=== PATIENT | female | born 1950 | race African-American/Black ===

== ENCOUNTER 2021-03-20 15:01 | Inpatient (IN) | payer MEDICARE, OTHER ==
[~2021-03-20] VITALS: Ht 152.4 cm; Wt 40.0 kg
--- NOTE | 2021-03-20 15:44 | REP ---
INDICATION: fall, injury, pain COMPARISON: None. TECHNIQUE: AP and frog-lateral views of the right hip hip FINDINGS: Generalized age-related changes are appreciated. No evidence for acute or healed injury. Surrounding soft tissues are normal. IMPRESSION: Mild generalized age-related changes. No acute fracture or dislocation appreciated. <Electronically signed by Dustin Allen > 03/20/21 [id number]
[2021-03-20] MEDS ORDERED: NORCO, ANEXSIA 5/325MG TABLET (HYDROcodone/ACETAMINOPHEN) PO ONE (23:15)
--- NOTE | 2021-03-21 01:06 | REPVR ---
PROCEDURE INFORMATION: Exam: XR Right Femur Exam date and time: 03/20/2021 11:58 PM Age: 70 years old Clinical indication: Other: Fell, unable to bear weight TECHNIQUE: Imaging protocol: XR Right femur. Views: 2 views. COMPARISON: CR Hip, Ap,Lat 03/20/2021 3:24 PM FINDINGS: Bones/joints: Proximal right femur is intact. Right hip joint is intact. Deformities of the left superior and inferior pubic rami. Soft tissues: Unremarkable. Vasculature: Moderate vascular calcifications. Other findings: Copious stool overlying the sacrum. IMPRESSION: 1. No right hip fracture. 2. Deformities of the left superior and inferior pubic rami. Consistent with acute fractures. Recommend XR of the pelvis and left hip. Electronically signed by: Leidy Butler On 03/21/2021 01:05:36 AM
--- NOTE | 2021-03-21 01:07 | REPVR ---
PROCEDURE INFORMATION: Exam: XR Right Tibia and Fibula Exam date and time: 03/20/2021 11:58 PM Age: 70 years old Clinical indication: Other: Fell, unable to bear weight TECHNIQUE: Imaging protocol: XR Right tibia and fibula. Views: 2 views. COMPARISON: No relevant prior studies available. FINDINGS: Bones/joints: No acute fracture. No dislocation. Soft tissues: Normal. Vasculature: Moderate vascular calcification. IMPRESSION: No acute fracture. Electronically signed by: Leidy Butler On 03/21/2021 01:06:38 AM
--- NOTE | 2021-03-21 01:08 | REPVR ---
PROCEDURE INFORMATION: Exam: XR Spine; Lumbar Exam date and time: 03/20/2021 11:58 PM Age: 70 years old Clinical indication: Other: Fell, unahle to bear weight; Additional info: Fell, unable to bear weight TECHNIQUE: Imaging protocol: XR of the spine. Exam focused on the lumbar spine. Views: 1 view. COMPARISON: CR Hip, Ap,Lat 03/20/2021 3:24 PM FINDINGS: Limitations: Limited by single projection. Bones/joints: No gross fracture of the lumbar spine. Vertebral body heights are preserved on the AP projection. Deformity of the left pubic body and left superior pubic ramus. Copious stool overlying the sacrum. Vasculature: Moderate vascular calcification. Soft tissues: Normal. IMPRESSION: 1. Suboptimal evaluation of the lumbar spine. 2. Deformity of the left pubic body and left superior pubic ramus. Consistent with acute fractures. Electronically signed by: Leidy Butler On 03/21/2021 01:08:17 AM
--- NOTE | 2021-03-21 01:11 | REPVR ---
PROCEDURE INFORMATION: Exam: XR Pelvis Exam date and time: 03/20/2021 11:58 PM Age: 70 years old Clinical indication: Fell, unable to bear weight; Fell, cant bear weight TECHNIQUE: Imaging protocol: XR pelvis. Views: 3 or more views. COMPARISON: CR Spine, Lumbosacral, partial 03/20/2021 11:19 PM FINDINGS: Limitations: Examination is limited somewhat by the portable technique. Bones/joints: Deformities of the left pubic body and left superior pubic ramus. Consistent with acute fractures. Proximal femur are intact. No dislocation. Soft tissues: Unremarkable. Vasculature: Vascular calcifications. Other findings: Copious stool overlying the sacrum and pubic bone. IMPRESSION: Acute moderately displaced fractures of the left pubic body and left superior pubic ramus. Electronically signed by: Leidy Butler On 03/21/2021 01:10:34 AM
--- NOTE | 2021-03-21 02:04 | REPVR ---
PROCEDURE INFORMATION: Exam: CT Pelvis Without Contrast; Skeletal Exam date and time: 03/21/2021 1:41 AM Age: 70 years old Clinical indication: Acute fractures on XR. 3d recon for ramus fracture TECHNIQUE: Imaging protocol: Computed tomography images of the pelvis without contrast. Exam focused on the skeletal structures. Radiation optimization: All CT scans at this facility use at least one of these dose optimization techniques: automated exposure control; mA and/or kV adjustment per patient size (includes targeted exams where dose is matched to clinical indication); or iterative reconstruction. COMPARISON: CR Pelvis, complete 03/20/2021 11:47 PM FINDINGS: Limitations: Pelvic organs are not fully evaluated on this study. Bladder: Bladder is distended. Reproductive: Uterus is normal. Intraperitoneal space: No free fluid in the pelvis. Vasculature: Moderate calcified atherosclerotic disease. Bones/joints: Acute moderate displaced fracture of the right sacral wing. Acute nondisplaced displaced fracture of the anterior right acetabular column. Acute mildly displaced fracture of the right inferior pubic ramus. Acute moderate displaced fracture of the left pubic body extending into the left superior pubic ramus. Proximal femur are intact. No dislocation. Soft tissues: Unremarkable. IMPRESSION: 1. Acute moderate displaced fracture of the right sacral wing. 2. Acute fractures of the right anterior acetabular column, and right inferior pubic ramus. 3. Acute fractures of the left pubic body and left superior pubic ramus. Electronically signed by: Leidy Butler On 03/21/2021 02:03:53 AM
[2021-03-21] MEDS ORDERED: MORPHINE 2 MG/ML 1ML VIAL (J2270) IV ONE (03:00)
[2021-03-21 03:04] LABS: BASO % 0.3 % (0.0-1.0); EOS # 0.1 10^3/uL (0.0-0.5); EOS % 0.8 % (0.0-3.0); HEMATOCRIT 40.2 % (36.0-47.0); HEMOGLOBIN 13.5 g/dl (12.0-15.5); LYMPH # 1.1 10^3/uL (1.5-5.0); LYMPH % 15.5 % (24.0-44.0); MEAN CORPUSCULAR HEMOGLOBIN 31.8 pg (27.0-33.0); MEAN CORPUSCULAR HGB CONC 33.6 g/dl (32.0-36.5); MEAN CORPUSCULAR VOLUME 94.8 fl (80.0-96.0); MONO # 0.4 10^3/uL (0.0-0.8); MONO % 4.9 % (2.0-8.0); NEUTROPHILS # 5.7 10^3/uL (1.5-8.5); NEUTROPHILS % 78.1 % (36.0-66.0); PLATELET COUNT, AUTOMATED 261 10^3/uL (150-450); RED BLOOD COUNT 4.24 10^6/uL (4.00-5.40); WHITE BLOOD COUNT 7.3 10^3/uL (4.0-10.0)
[2021-03-21 03:46] LABS: RSV AMPLIFICATION NEGATIVE (NEGATIVE)
[2021-03-21 05:49] LABS: PROTHROMBIN TIME 13.6 SECONDS (12.7-14.5)
[2021-03-21] MEDS ORDERED: oxyCODONE 5MG TAB PO PRN (07:40)
[2021-03-21] MEDS ORDERED: MOM 30ML SUSPENSION UDC PO PRN (07:40)
[2021-03-21] MEDS ORDERED: MAALOX 30 ML SUSP *UDC PO PRN (07:40)
[2021-03-21] MEDS ORDERED: VITMTA PO (08:13)
--- NOTE | 2021-03-21 08:13 | ECGEPIP ---
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
[2021-03-21] MEDS ORDERED: MUCI600T31 PO (08:38)
[2021-03-21] MEDS ORDERED: EXCETAB33 PO (08:38)
[2021-03-21 08:40] VITALS: BP 122/84
[2021-03-21] MEDS ORDERED: HOME MED LIST COMPLETE! XX SCH (08:40)
[2021-03-21] MEDS: PANTOPRAZOLE 40MG TAB (PROTONIX) PO SCH (10:08)
[2021-03-21] MEDS: DOCUSATE SODIUM 100MG CAPSULE PO SCH ×2 (10:08→20:55)
[2021-03-21] MEDS: ENOXAPARIN 40MG/0.4ML SYRINGE (J1650 PER 10MG) SC SCH (10:09)
[2021-03-21] MEDS: NAPROXEN 250 MG TAB PO SCH ×2 (10:10→20:55)
[2021-03-21] MEDS: traMADol 50 MG TAB PO SCH ×3 (10:10→21:00)
--- NOTE | 2021-03-21 10:20 | HPEPDOC ---
General Date of Admission 03/21/21 Date of Service: Mar 21, 2021 Chief Complaint The patient is a 70-year-old female admitted with a reason for visit of Fall Injury. History of Present Illness 70-year-old female with no past medical history presented to the emergency room after a mechanical fall at home early this morning. Patient got up suddenly from bed to go check on her grandson who is 1-1/2 years old as she saw her standing up and the baby monitor and had a mechanical fall. She was able to crawl to hold onto object and pull herself up and was able to go check on the baby but then continued to feel severe pain in her right hip and pelvis especially when she was trying to put weight on it so was brought to the emergency room. When she is at rest she is in no pain but as soon as she is trying to put bear weight she complains of 8/10 pain which is sharp aching located at the right hip and right pelvis with no radiation. In the ED she she had a pelvic CT which showed 1. Acute moderate displaced fracture of the right sacral wing. 2. Acute fractures of the right anterior acetabular column, and right inferior pubic ramus. 3. Acute fractures of the left pubic body and left superior pubic ramus. Orthopedic Dr. Guzman was consulted by ED physician and his recommendation was pain control, PT with weightbearing as tolerated no surgical intervention required. Home Medications Scheduled Multivitamins (Thera M Plus Tablet) 1 Each Tablet, 1 TAB PO QAM, (Reported) Scheduled PRN Aspirin/Acetaminophen/Caffeine (Excedrin Migraine Caplet) 1 Each Tablet, 2 TAB PO BID PRN for MIGRAINE, (Reported) Guaifenesin (Mucinex) 600 Mg Tab.er.12h, 600 MG PO BID PRN for COUGH, (Reported) Allergies Coded Allergies: No Known Drug Allergies (Verified Allergy, Unknown, 03/20/21) Past Medical History Medical History None Surgical History None Family History Significant Family History: Other (Mother had Parkinson's disease passed age 84) Social History * Smoker: current smoker Alcohol: Denies Drugs: denies A-FIB/CHADSVASC A-FIB History Current/History of A-Fib/PAF?: No Review of Systems Constitutional: Denies: Chills, Fever, Night Sweats Eyes: Denies: Pain, Vision change ENT: Denies: Head Aches, Ear Pain, Dysphagia Skin: Denies: Rash, Lesions, Breakdown Pulmonary: Denies: Dyspnea, Cough Cardiovascular: Denies: Chest Pain, Palpitations, Orthopnea, Paroxysmal Noc. Dyspnea, Lt Headedness Gastrointestinal: Denies: Nausea, Vomiting, Abdominal Pain, Diarrhea Genitourinary: Denies: Dysuria, Frequency, Incontinence, Retention Musculoskeletal: Reports: Joint Pain (Right hip pain) Neurological: Denies: Weakness, Numbness, Change in speech, Confusion Physical Examination General Exam: Positive: Alert, Cooperative, No Acute Distress Eye Exam: Positive: PERRLA, Conjunctiva & lids normal, EOMI; Negative: Sclera icteric ENT Exam: Positive: Atraumatic, Mucous membr. moist/pink, Pharynx Normal Neck Exam: Positive: Supple; Negative: JVD, thyromegaly Chest Exam: Positive: Clear to auscultation, Normal air movement Heart Exam: Positive: Rate Normal, Regular Rhythm, Normal S1, Normal S2; Negative: Murmurs, Rubs Abdomen Exam: Positive: Normal bowel sounds, Soft; Negative: Tenderness, Hepatospenomegaly Extremity Exam: Negative: Clubbing, Cyanosis, Edema Vital Signs Vital Signs Date Time Temp Pulse Resp B/P (MAP) Pulse Ox O2 Delivery O2 Flow Rate FiO2 03/21/21 04:33 140/65 (90) 03/21/21 04:32 16 03/21/21 00:23 98.0 79 97 Room Air Laboratory Data Labs 24H Laboratory Tests 2 03/21/21 02:52: Immature Granulocyte % (Auto) 0.4, Neutrophils (%) (Auto) 78.1H, Lymphocytes (%) (Auto) 15.5L, Monocytes (%) (Auto) 4.9, Eosinophils (%) (Auto) 0.8, Basophils (%) (Auto) 0.3, Neutrophils # (Auto) 5.7, Lymphocytes # (Auto) 1.1L, Monocytes # (Auto) 0.4, Eosinophils # (Auto) 0.1, Basophils # (Auto) 0.0, Nucleated Red Blood Cells % (auto) 0.0, Coronavirus (COVID-19)(PCR) NEGATIVE, Influenza Type A (RT-PCR) NEGATIVE, Influenza Type B (RT-PCR) NEGATIVE, Respiratory Syncytial Virus (PCR) NEGATIVE 03/21/21 05:01: Prothrombin Time 13.6, Prothromb Time International Ratio 1.00 03/21/21 07:25: POC Glucose (Misc Panel) 86, POC Sodium (Misc Panel) 137, POC Potassium (Misc Panel) 3.7, POC Chloride (Misc Panel) 101, POC Total CO2 (Misc Panel) 27.0, POC Blood Urea Nitrogen (Misc Panel 13, POC Ionized Calcium (Misc Panel) 5.0, POC Creatinine (Misc Panel) 0.6, POC Hematocrit (Misc Panel) 38.0 CBC/BMP Laboratory Tests 03/21/21 02:52 Assessment/Plan 70-year-old female from [place], visiting her son who is in the , with no past medical history presented to the emergency room after a mechanical fall at home early this morning. Patient got up suddenly from bed to go check on her grandson who is 1-1/2 years old as she saw her standing up and the baby monitor and had a mechanical fall. She was able to crawl to hold onto object and pull herself up and was able to go check on the baby but then continued to feel severe pain in her right hip and pelvis especially when she was trying to put weight on it so was brought to the emergency room. When she is at rest she is in no pain but as soon as she is trying to put bear weight she complains of 8/10 pain which is sharp aching located at the right hip and right pelvis with no radiation. She was found to have moderately displaced fracture of the right sacral wing, right anterior acetabular column fracture right inferior ramus fracture, left superior ramus fracture, left pubic body fracture. Pelvic fracture As above Orthopedic Dr. Guzman was consulted by ED physician and his recommendation was pain control, PT with weightbearing as tolerated no surgical intervention required. Pain control with naproxen and tramadol and Tylenol PT OT Weightbearing as tolerated Plan / VTE VTE Prophylaxis Ordered?: Yes Venus Vinson MD Mar 21, 2021 07:44
--- NOTE | 2021-03-21 13:23 | IPNPDOC ---
Text Note Date of Service The patient was seen on 03/21/21. NOTE ORTHO CONSULT NOTE Reason for Consult: s/p fall and pelvic pain History of Present Illness 70-year-old female with no past medical history presented to the emergency room after a mechanical fall at home early yesterday morning. Patient got up suddenly from bed to go check on her grandson who is 1-1/2 years old as she saw her standing up on the baby monitor and had a mechanical fall. She was able to crawl to hold onto object and pull herself up and was able to go check on the baby but then continued to feel severe pain in her right hip and pelvis especially when she was trying to put weight on it so was brought to the emergency room. When she is at rest she is in no pain but as soon as she is trying to put bear weight she complains of 8/10 pain which is sharp aching located at the right hip and right pelvis with no radiation. In ED she had imaging that demonstrated fractures of the right sacral ala and both superior and inferior pubic rami, in addition to the left superior pubic ramus Orthopaedics was called for further evaluation and management. Home Medications Scheduled Multivitamins (Thera M Plus Tablet) 1 Each Tablet, 1 TAB PO QAM, (Reported) Scheduled PRN Aspirin/Acetaminophen/Caffeine (Excedrin Migraine Caplet) 1 Each Tablet, 2 TAB PO BID PRN for MIGRAINE, (Reported) Guaifenesin (Mucinex) 600 Mg Tab.er.12h, 600 MG PO BID PRN for COUGH, (Reported) Allergies Coded Allergies: No Known Drug Allergies (Verified Allergy, Unknown, 03/20/21) Past Medical History Medical History None Surgical History None Family History Significant Family History: Other (Mother had Parkinson's disease passed age 84) Social History * Smoker: current smoker Alcohol: Denies Drugs: denies Review of Systems Constitutional: Denies: Chills, Fever, Night Sweats Eyes: Denies: Pain, Vision change ENT: Denies: Head Aches, Ear Pain, Dysphagia Skin: Denies: Rash, Lesions, Breakdown Pulmonary: Denies: Dyspnea, Cough Cardiovascular: Denies: Chest Pain, Palpitations, Orthopnea, Paroxysmal Noc. Dyspnea, Lt Headedness Gastrointestinal: Denies: Nausea, Vomiting, Abdominal Pain, Diarrhea Genitourinary: Denies: Dysuria, Frequency, Incontinence, Retention Musculoskeletal: Reports: Joint Pain (Right hip pain) Neurological: Denies: Weakness, Numbness, Change in speech, Confusion Physical Examination General Exam: Positive: Alert, Cooperative, No Acute Distress Neuro: A&O x4 Psych: normal mood and affect Eye Exam: Positive: PERRLA, Conjunctiva & lids normal, EOMI; Negative: Sclera icteric ENT Exam: Positive: Atraumatic, Mucous membr. moist/pink, Pharynx Normal Chest Exam: ECRF, NLB Heart Exam: Regular Rhythm Abdomen Exam: NT, ND Extremity Exam: Exam of the bilateral lower extremities and pelvis demonstrates TTP over the superior pubic rami, but nearly full AAROM of the hips and knees. No pain other than pelvis. Able to stand with me and then alone unassisted. Otherwise NVI distally. Imaging: Radiographs of the right lower extremity and pelvis, in addition to CT scan, were reviewed and demonstrate bilateral pubic rami fractures and a unicortical right sacral ala fracture, consistent with Lateral Compression Type 1 injury. Assessment/Plan 70-year-old female who sustained a ground level fall who now has an LC-1 pelvic ring injury. It appears grossly stable and likely will not require surgery. Recommendations: - Touch down weight bearing with PT and 1 or 2 assists, okay for ambulation with walker and assist. - After working with therapy, would like to get a standing AP pelvis XR tomorrow. This will demonstrate any potential shifts in the fractures. If none, then will continue treatment plan as stable LC-1. If fracture shift will need to consider transfer to higher level of care for further surgical intervention. - Pain control per primary team - DVT prophylaxis per primary team Please call Ortho with any questions, Sam ([phone]) Alis Perez VS,Gamalielbonwyatt, I+O VS, Gamalielbone, I+O Laboratory Tests 03/21/21 02:52 Vital Signs Date Time Temp Pulse Resp B/P (MAP) Pulse Ox O2 Delivery O2 Flow Rate FiO2 03/21/21 10:10 17 03/21/21 08:40 97.8 103 122/84 (97) 93 Room Air KRISSY PEREZ MD Mar 21, 2021 13:23
[2021-03-21 14:00] VITALS: BP 107/71
[2021-03-21] MEDS: ACETAMINOPHEN TAB 650MG DOSE (2X325MG) PO PRN ×2 (16:52→20:55)
[2021-03-21 22:00] VITALS: BP 111/67
[2021-03-22 06:00] VITALS: BP 128/72
[2021-03-22] MEDS: traMADol 50 MG TAB PO SCH ×3 (08:08→20:36)
[2021-03-22] MEDS: DOCUSATE SODIUM 100MG CAPSULE PO SCH ×2 (08:11→20:35)
[2021-03-22] MEDS: NAPROXEN 250 MG TAB PO SCH ×2 (08:11→20:36)
[2021-03-22] MEDS: PANTOPRAZOLE 40MG TAB (PROTONIX) PO SCH (08:11)
[2021-03-22] MEDS: ENOXAPARIN 40MG/0.4ML SYRINGE (J1650 PER 10MG) SC SCH (08:12)
[2021-03-22 08:37] LABS: ALBUMIN 2.9 GM/DL (3.2-5.2); BILIRUBIN,DIRECT 0.1 MG/DL (0.0-0.2); BILIRUBIN,TOTAL 0.4 MG/DL (0.2-1.0); TOTAL PROTEIN 5.6 GM/DL (6.4-8.2)
--- NOTE | 2021-03-22 09:37 | REP ---
INDICATION: Standing AP, inlet, outlet views please. COMPARISON: CT dated 03/21/2021 TECHNIQUE: AP, inlet, and outlet views of the pelvis FINDINGS: There is a known mildly displaced fracture through the right inferior pubic ramus and nondisplaced fracture along the left pubis involving the medial aspect of the superior pubic ramus. Fracture involving the right sacral wing and fracture involving the right acetabular column are not identifiable due to osteopenia, degenerative changes and overlying bowel gas. IMPRESSION: Fractures as described above are best identified and evaluated on recent pelvic CT. <Electronically signed by Dustin Allen > 03/22/21 0999
--- NOTE | 2021-03-22 09:45 | IPNPDOC ---
Subjective Date Seen The patient was seen on 03/22/21. Subjective Chief Complaint/HPI No pain while at rest. Could not do much with PT yesterday. Only waqas to stand by the side of the bed . Objective Physical Examination General Exam: Positive: Alert, Cooperative, No Acute Distress Eye Exam: Positive: PERRLA, Conjunctiva & lids normal, EOMI ENT Exam: Positive: Atraumatic, Mucous membr. moist/pink, Pharynx Normal, Other ENT (Bitemporal wasting. ) Neck Exam: Positive: Supple Chest Exam: Positive: Clear to auscultation, Normal air movement Heart Exam: Positive: Rate Normal, Regular Rhythm, Normal S1, Normal S2 Abdomen Exam: Positive: Normal bowel sounds, Soft Extremity Exam: Negative: Clubbing, Cyanosis, Edema Assessment /Plan Assessment 70-year-old female from [place], visiting her son who is in the , with no past medical history presented to the emergency room after a mechanical fall at home early this morning. Patient got up suddenly from bed to go check on her grandson who is 1-1/2 years old as she saw him standing up in the baby monitor and had a mechanical fall. She was able to crawl to hold onto object and pull herself up and was able to go check on the baby but then continued to feel severe pain in her right hip and pelvis especially when she was trying to put weight on it so was brought to the emergency room. When she is at rest she is in no pain but as soon as she is trying to put bear weight she complains of 8/10 pain which is sharp aching located at the right hip and right pelvis with no radiation. She was found to have moderately displaced fracture of the right sacral wing, right anterior acetabular column fracture right inferior ramus fracture, left superior ramus fracture, left pubic body fracture. Pelvic ring injury Orthopedic recommendations Touch down weight bearing with PT and 1 or 2 assists, okay for ambulation with walker and assist. Repeat pelvic Xray has been completed today. Await orthopedic review to determine if the fracture is stable or not. Pain control with naproxen and tramadol and Tylenol PT /OT Protein calorie malnutrition/Sarcopenia albumin 2.9 BMI of 17,2 with bitemporal wasting and wasting of small muscles of hand and feet. Plan/VTE VTE Prophylaxis Ordered?: Yes VS, I&O, 24H, Fishbone Vital Signs/I&O Vital Signs Date Time Temp Pulse Resp B/P (MAP) Pulse Ox O2 Delivery O2 Flow Rate FiO2 03/22/21 06:00 98.9 75 20 128/72 (90) 95 Room Air I&O- Last 24 Hours up to 6 AM 03/22/21 05:59 Intake Total 1260 ml Output Total 0 ml Balance 1260 ml Laboratory Data 24H LABS Laboratory Tests 2 03/21/21 07:25: POC Glucose (Misc Panel) 86, POC Sodium (Misc Panel) 137, POC Potassium (Misc Panel) 3.7, POC Chloride (Misc Panel) 101, POC Total CO2 (Misc Panel) 27.0, POC Blood Urea Nitrogen (Misc Panel 13, POC Ionized Calcium (Misc Panel) 5.0, POC Creatinine (Misc Panel) 0.6, POC Hematocrit (Misc Panel) 38.0 Venus Vinson MD Mar 22, 2021 07:03
--- NOTE | 2021-03-22 10:24 | IPNPDOC ---
Text Note Date of Service The patient was seen on 03/22/21. NOTE Ortho Progress Note S: patient doing well today, not much change in pain level. Was able to do standing pelvis XR. feels like she is getting stronger and able to move better. No other changes or complaints. O: resting comfortably in bed - Pelvis still TTP around pubic rami, ROM full but painful about hips, NVI distally Imaging: - Standing Pelvis XR and supine inlet/outlet views reviewed today. The standing film is basically identical to the pelvis film taken upon admission, indicating stable pelvic ring. A/P: 70 F with stable pelvic ring injury, LC-1. No surgery recommended at this point. - Okay to continue touch down weight bearing and progress to WBAT as continues to work with therapy. Likely will need assistance and walker for some time. - Pain control and DVT ppx per primary team. - Dispo: per PT/OT recs at this point (with regards to rehab vs. d/c home). If patient plans to stay in the area for a while, then she can follow up with me at [facility] ortho clinic on 23 APR 2021. If she plans on returning to [place] then I would recommend her seeing an orthopaedic surgeon sometime soon after arriving, within a couple of weeks. - If any changes or concerns, please do not hesitate to contact me. Alis Perez VS,Heather, I+O VS, Heather, I+O Vital Signs Date Time Temp Pulse Resp B/P (MAP) Pulse Ox O2 Delivery O2 Flow Rate FiO2 03/22/21 10:00 17 03/22/21 06:00 98.9 75 128/72 (90) 95 Room Air I&O- Last 24 Hours up to 6 AM 03/22/21 06:00 Intake Total 1260 ml Output Total 0 ml Balance 1260 ml KRISSY PEREZ MD Mar 22, 2021 10:24
[2021-03-22] MEDS: ACETAMINOPHEN TAB 650MG DOSE (2X325MG) PO PRN ×2 (10:52→20:35)
[2021-03-22 22:00] VITALS: BP 121/71
[2021-03-23 06:00] VITALS: BP 120/72
[2021-03-23 06:23] LABS: BASO % 0.3 % (0.0-1.0); EOS # 0.2 10^3/uL (0.0-0.5); EOS % 3.7 % (0.0-3.0); HEMATOCRIT 35.1 % (36.0-47.0); LYMPH # 1.6 10^3/uL (1.5-5.0); LYMPH % 25.8 % (24.0-44.0); MEAN CORPUSCULAR HEMOGLOBIN 31.9 pg (27.0-33.0); MEAN CORPUSCULAR HGB CONC 34.2 g/dl (32.0-36.5); MEAN CORPUSCULAR VOLUME 93.4 fl (80.0-96.0); MONO # 0.4 10^3/uL (0.0-0.8); MONO % 6.8 % (2.0-8.0); NEUTROPHILS # 3.9 10^3/uL (1.5-8.5); NEUTROPHILS % 62.9 % (36.0-66.0); PLATELET COUNT, AUTOMATED 237 10^3/uL (150-450); RED BLOOD COUNT 3.76 10^6/uL (4.00-5.40); WHITE BLOOD COUNT 6.2 10^3/uL (4.0-10.0)
[2021-03-23 06:44] LABS: BLOOD UREA NITROGEN 16 MG/DL (7-18); CALCIUM LEVEL 9.2 MG/DL (8.8-10.2); CARBON DIOXIDE LEVEL 28 MEQ/L (21-32); CHLORIDE LEVEL 108 MEQ/L (98-107); CREATININE FOR GFR 0.66 MG/DL (0.55-1.30); GLOMERULAR FILTRATION RATE > 60.0 (>39); GLUCOSE, FASTING 110 MG/DL (70-100); POTASSIUM SERUM 3.5 MEQ/L (3.5-5.1); SODIUM LEVEL 142 MEQ/L (136-145)
[2021-03-23] MEDS: DOCUSATE SODIUM 100MG CAPSULE PO SCH (08:33)
[2021-03-23] MEDS: PANTOPRAZOLE 40MG TAB (PROTONIX) PO SCH (08:33)
[2021-03-23] MEDS: NAPROXEN 250 MG TAB PO SCH (08:34)
[2021-03-23] MEDS: traMADol 50 MG TAB PO SCH ×2 (08:34→16:48)
[2021-03-23] MEDS: ENOXAPARIN 40MG/0.4ML SYRINGE (J1650 PER 10MG) SC SCH (08:35)
--- NOTE | 2021-03-23 11:23 | IPNPDOC ---
Subjective Date Seen The patient was seen on 03/23/21. Subjective Chief Complaint/HPI Feels well this am. has worked with PT. Eager to go home. Objective Physical Examination General Exam: Positive: Alert, Cooperative, No Acute Distress Eye Exam: Positive: PERRLA, Conjunctiva & lids normal, EOMI ENT Exam: Positive: Atraumatic, Mucous membr. moist/pink, Pharynx Normal, Other ENT (Bitemporal wasting. ) Neck Exam: Positive: Supple Chest Exam: Positive: Clear to auscultation, Normal air movement Heart Exam: Positive: Rate Normal, Regular Rhythm, Normal S1, Normal S2 Abdomen Exam: Positive: Normal bowel sounds, Soft Extremity Exam: Negative: Clubbing, Cyanosis, Edema Assessment /Plan Assessment 70-year-old female from [place], visiting her son who is in the , with no past medical history presented to the emergency room after a mechanical fall at home early this morning. Patient got up suddenly from bed to go check on her grandson who is 1-1/2 years old as she saw him standing up in the baby monitor and had a mechanical fall. She was able to crawl to hold onto object and pull herself up and was able to go check on the baby but then continued to feel severe pain in her right hip and pelvis especially when she was trying to put weight on it so was brought to the emergency room. When she is at rest she is in no pain but as soon as she is trying to put bear weight she complains of 8/10 pain which is sharp aching located at the right hip and right pelvis with no radiation. She was found to have moderately displaced fracture of the right sacral wing, right anterior acetabular column fracture right inferior ramus fracture, left superior ramus fracture, left pubic body fracture. Pelvic ring injury Orthopedic recommendations Touch down weight bearing with PT and 1 or 2 assists, okay for ambulation with walker and assist. Repeat pelvic Xray has been completed today. Await orthopedic review to determine if the fracture is stable or not. Pain control with naproxen and tramadol and Tylenol PT /OT Protein calorie malnutrition/Sarcopenia albumin 2.9 BMI of 17,2 with bitemporal wasting and wasting of small muscles of hand and feet. DME requirement: Wheelchair : Patient's mobility is limited due to pelvic ring fracture and she is unable to complete her ADLs independently in a reasonable time frame. Her mobility limitation cannot be resolved by a walker or cane. Use of a manual WC will improve the beneficiary's ability to participate in ADLs and patient will use it regularly at home. Patient 's son and daughter are available to provide assistance with the wheelchair. Plan/VTE VTE Prophylaxis Ordered?: Yes VS, I&O, 24H, Fishbone Vital Signs/I&O Vital Signs Date Time Temp Pulse Resp B/P (MAP) Pulse Ox O2 Delivery O2 Flow Rate FiO2 03/23/21 08:34 18 Room Air 03/23/21 06:00 97.8 85 120/72 (88) 94 I&O- Last 24 Hours up to 6 AM 03/23/21 06:00 Intake Total 840 ml Output Total 0 ml Balance 840 ml Laboratory Data 24H LABS Laboratory Tests 2 03/23/21 06:10: Immature Granulocyte % (Auto) 0.5, Neutrophils (%) (Auto) 62.9, Lymphocytes (%) (Auto) 25.8, Monocytes (%) (Auto) 6.8, Eosinophils (%) (Auto) 3.7H, Basophils (%) (Auto) 0.3, Neutrophils # (Auto) 3.9, Lymphocytes # (Auto) 1.6, Monocytes # (Auto) 0.4, Eosinophils # (Auto) 0.2, Basophils # (Auto) 0.0, Nucleated Red Blood Cells % (auto) 0.0, Anion Gap 6L, Glomerular Filtration Rate > 60.0, Calcium Level 9.2 CBC/BMP Laboratory Tests 03/23/21 06:10 Venus Vinson MD Mar 23, 2021 11:23
[2021-03-23 14:00] VITALS: BP 119/73
[2021-03-23] MEDS ORDERED: ASPI81TA26 PO (15:57)
[2021-03-23] MEDS ORDERED: TRAM50TA2 PO (15:57)
[2021-03-23] MEDS ORDERED: COLA100C5 PO (15:57)
[2021-03-23] MEDS ORDERED: OXYC-517 PO (15:57)
--- NOTE | 2021-03-23 16:36 | IPNPDOC ---
Text Note Date of Service The patient was seen on 03/23/21. NOTE Ortho Progress Note S: patient doing well today, pain more manageable. Was able to go to the restroom unassisted last night. No other changes or complaints. O: resting comfortably in bed - Pelvis still TTP around pubic rami, ROM full but painful about hips, NVI distally Imaging: - Standing Pelvis XR and supine inlet/outlet views reviewed previously. The standing film is basically identical to the pelvis film taken upon admission, indicating stable pelvic ring. A/P: 70 F with stable pelvic ring injury, LC-1. No surgery recommended at this point. - Okay to continue touch down weight bearing and progress to WBAT as continues to work with therapy. Likely will need assistance and walker for some time. - Pain control and DVT ppx per primary team. - Dispo: per PT/OT recs at this point (with regards to rehab vs. d/c home). If patient plans to stay in the area for a while, then she can follow up with me at [facility] ortho clinic on 23 APR 2021. If she plans on returning to [place] then I would recommend her seeing an orthopaedic surgeon sometime soon after arriving, within a couple of weeks. - If any changes or concerns, please do not hesitate to contact me. Alis Perez VS,Heather, I+O VS, Heather, I+O Laboratory Tests 03/23/21 06:10 Vital Signs Date Time Temp Pulse Resp B/P (MAP) Pulse Ox O2 Delivery O2 Flow Rate FiO2 03/23/21 14:00 98.3 80 18 119/73 (88) 96 Room Air I&O- Last 24 Hours up to 6 AM 03/23/21 06:00 Intake Total 840 ml Output Total 0 ml Balance 840 ml KRISSY PEREZ MD Mar 23, 2021 16:36
--- NOTE | 2021-03-23 21:59 | DS.PDOC ---
Discharge Summary General Date of Admission Mar 21, 2021 at 07:38 Date of Discharge 03/23/21 Discharge Summary PROCEDURES PERFORMED DURING STAY: [None]. DISCHARGE DIAGNOSES: Stable Pelvic ring fracture Sarcopenia Protein Calorie malnutrition COMPLICATIONS/CHIEF COMPLAINT: Pelvic Fracture. HOSPITAL COURSE: 70-year-old female from [place], visiting her son who is in the , with no past medical history presented to the emergency room after a mechanical fall at home early this morning. Patient got up suddenly from bed to go check on her grandson who is 1-1/2 years old as she saw him standing up in the baby monitor and had a mechanical fall. She was able to crawl to hold onto object and pull herself up and was able to go check on the baby but then continued to feel severe pain in her right hip and pelvis especially when she was trying to put weight on it so was brought to the emergency room. When she is at rest she is in no pain but as soon as she is trying to put bear weight she complains of 8/10 pain which is sharp aching located at the right hip and right pelvis with no radiation. She was found to have moderately displaced fracture of the right sacral wing, right anterior acetabular column fracture right inferior ramus fracture, left superior ramus fracture, left pubic body fracture. Stable Pelvic ring injury Orthopedic recommendations No need for surgical intervention. Touch down weight bearing with PT and 1 or 2 assists, okay for ambulation with walker and assist. Pain control with naproxen and tramadol and Tylenol Continue PT /OT Follow up with ortho in 2 weeks Either here or in [place]. Protein calorie malnutrition/Sarcopenia albumin 2.9 BMI of 17,2 with bitemporal wasting and wasting of small muscles of hand and feet. DISCHARGE MEDICATIONS: Please see below. ALLERGIES: Please see below. PHYSICAL EXAMINATION ON DISCHARGE: VITAL SIGNS: Please see below. General Exam: Positive: Alert, Cooperative, No Acute Distress Eye Exam: Positive: PERRLA, Conjunctiva & lids normal, EOMI ENT Exam: Positive: Atraumatic, Mucous membr. moist/pink, Pharynx Normal, Other ENT (Bitemporal wasting. ) Neck Exam: Positive: Supple Chest Exam: Positive: Clear to auscultation, Normal air movement Heart Exam: Positive: Rate Normal, Regular Rhythm, Normal S1, Normal S2 Abdomen Exam: Positive: Normal bowel sounds, Soft Extremity Exam: Negative: Clubbing, Cyanosis, Edema LABORATORY DATA: Please see below. IMAGING: Pelvic CT 03/21/21: FINDINGS: Limitations: Pelvic organs are not fully evaluated on this study. Bladder: Bladder is distended. Reproductive: Uterus is normal. Intraperitoneal space: No free fluid in the pelvis. Vasculature: Moderate calcified atherosclerotic disease. Bones/joints: Acute moderate displaced fracture of the right sacral wing. Acute nondisplaced displaced fracture of the anterior right acetabular column. Acute mildly displaced fracture of the right inferior pubic ramus. Acute moderate displaced fracture of the left pubic body extending into the left superior pubic ramus. Proximal femur are intact. No dislocation. Soft tissues: Unremarkable. IMPRESSION: 1. Acute moderate displaced fracture of the right sacral wing. 2. Acute fractures of the right anterior acetabular column, and right inferior pubic ramus. 3. Acute fractures of the left pubic body and left superior pubic ramus. Pelvic Xray 03/22/21: FINDINGS: There is a known mildly displaced fracture through the right inferior pubic ramus and nondisplaced fracture along the left pubis involving the medial aspect of the superior pubic ramus. Fracture involving the right sacral wing and fracture involving the right acetabular column are not identifiable due to osteopenia, degenerative changes and overlying bowel gas. IMPRESSION: Fractures as described above are best identified and evaluated on recent pelvic CT. ACTIVITY: [As tolerated]. DIET: Regular DISCHARGE PLAN: Home with services DISCHARGE INSTRUCTIONS: Follow up with orthopedics in 2 weeks DISCHARGE CONDITION: [Stable]. TIME SPENT ON DISCHARGE: 35 minutes. Vital Signs/I&Os Vital Signs Date Time Temp Pulse Resp B/P (MAP) Pulse Ox O2 Delivery O2 Flow Rate FiO2 03/23/21 16:48 18 Room Air 03/23/21 14:00 98.3 80 119/73 (88) 96 I&O- Last 24 Hours up to 6 AM 03/23/21 07:00 Intake Total 840 ml Output Total 0 ml Balance 840 ml Laboratory Data Labs 24H Laboratory Tests 2 03/23/21 06:10: Immature Granulocyte % (Auto) 0.5, Neutrophils (%) (Auto) 62.9, Lymphocytes (%) (Auto) 25.8, Monocytes (%) (Auto) 6.8, Eosinophils (%) (Auto) 3.7H, Basophils (%) (Auto) 0.3, Neutrophils # (Auto) 3.9, Lymphocytes # (Auto) 1.6, Monocytes # (Auto) 0.4, Eosinophils # (Auto) 0.2, Basophils # (Auto) 0.0, Nucleated Red Blood Cells % (auto) 0.0, Anion Gap 6L, Glomerular Filtration Rate > 60.0, Calcium Level 9.2 03/23/21 15:29: Lab Scanned Report Miscellaneous Lab CBC/BMP Laboratory Tests 03/23/21 06:10 Discharge Medications Scheduled Aspirin (Aspirin EC) 81 Mg Tablet.dr, 1 TAB PO BID Docusate Sodium (Colace) 100 Mg Capsule, 100 MG PO BID Multivitamins (Thera M Plus Tablet) 1 Each Tablet, 1 TAB PO QAM, (Reported) Scheduled PRN Aspirin/Acetaminophen/Caffeine (Excedrin Migraine Caplet) 1 Each Tablet, 2 TAB PO BID PRN for MIGRAINE, (Reported) Guaifenesin (Mucinex) 600 Mg Tab.er.12h, 600 MG PO BID PRN for COUGH, (Reported) Oxycodone HCl (Oxycodone HCl) 5 Mg Tablet, 5 MG PO Q6HP PRN for PAIN LEVEL 7-10 Tramadol HCl (Tramadol HCl) 50 Mg Tablet, 50 MG PO TIDP PRN for PAIN LEVEL 1-6 Allergies Coded Allergies: No Known Drug Allergies (Verified Allergy, Unknown, 03/20/21) Venus Vinson MD Mar 23, 2021 21:58
== END 2021-03-23 18:10 | disposition home or self-care (01) | DRG 536 ==
LOC: M ED 15:01 → M ED INP 03-21 07:38 → ENRESERV 03-21 07:54 → M MS5PR 03-21 08:43
PROVIDERS: ADMIT Internal Medicine Nephrology; ATTEND Internal Medicine Nephrology
DX: S32.511A Fracture of superior rim of right pubis, initial encounter for closed fracture (principal); S32.19XA Other fracture of sacrum, initial encounter for closed fracture; Z68.1 Body mass index [BMI] 19.9 or less, adult; E46 Unspecified protein-calorie malnutrition; M62.84 Sarcopenia; S32.591A Other specified fracture of right pubis, initial encounter for closed fracture; W06.XXXA Fall from bed, initial encounter; Y92.009 Unspecified place in unspecified non-institutional (private) residence as the place of occurrence of the external cause; F17.210 Nicotine dependence, cigarettes, uncomplicated; Z79.82 Long term (current) use of aspirin; Z79.899 Other long term (current) drug therapy